=== PATIENT | female | born 1975 | race Two or more races ===

== ENCOUNTER 2018-12-15 13:16 | Emergency (ER) | payer MEDICAID ==
[~2018-12-15] VITALS: Ht 157.5 cm; Wt 77.1 kg
--- NOTE | 2018-12-15 13:10 | NUR ---
ED Nurse Note: Pt BIBA from home due to L lower abdominal pain with n/v/d since 0500 this morning. Pain 10/10. No active vomitting upon arrival. Emesis was stated to be undigested food. Per family, pt came to PCP and was diagnosed with "appendix problem" 1 month ago. AOx4, VSS moshe. Will cont to monitor.
[2018-12-15 13:24] VITALS: BP 124/76
[2018-12-15] MEDS ORDERED: Morphine Sulfate 4mg/ml Inj (IV USE ONLY) IVP ONE ×2 (13:30→15:00)
[2018-12-15] MEDS ORDERED: Ketorolac 30mg Inj IV ONE (13:30)
--- NOTE | 2018-12-15 13:36 | Emergency Room Report ---
History of Present Illness General Chief Complaint: Abdominal Pain Source: Patient (Alicia Chowdhury DO) Present Illness HPI Patient presents with complaints of left lower abdomen and left flank pain Ongoing for the past day Denies any fevers denies any dysuria Pain is 10 out of 10 causing increased nausea and vomiting Denies any diarrhea denies any chest pain or shortness of breath denies any recent travel denies any trauma Denies any change with position or exertion (Alicia Chowdhury DO) Allergies: Coded Allergies: No Known Allergies (Unverified , 12/15/18) Patient History Past Medical History: see triage record Pertinent Family History: none Now: No Reviewed Nursing Documentation: PMH: Agreed; PSxH: Agreed (Alicia Chowdhury DO) Nursing Documentation-PMH Past Medical History: No Stated History (Alicia Chowdhury DO) Review of Systems All Other Systems: negative except mentioned in HPI (Alicia Chowdhury DO) Physical Exam Vital Signs Date Time Temp Pulse Resp B/P (MAP) Pulse Ox O2 Delivery O2 Flow Rate FiO2 12/15/18 13:07 98.1 69 18 136/80 98 Room Air Sp02 EP Interpretation: reviewed, normal General Appearance: moderate distress - In acute pain Head: normocephalic, atraumatic Eyes: bilateral eye PERRL, bilateral eye EOMI ENT: hearing grossly normal, normal pharynx, TMs + canals normal, uvula midline Neck: full range of motion, supple, no meningismus, no bony tend Respiratory: lungs clear, normal breath sounds, no rhonchi, no respiratory distress, no retraction, no accessory muscle use Cardiovascular #1: normal peripheral pulses, regular rate, rhythm, no edema, no gallop, no JVD, no murmur Gastrointestinal: normal bowel sounds, non tender, soft, no mass, no organomegaly, non-distended, no guarding, no hernia, no pulsatile mass, no rebound Genitourinary: no CVA tenderness - However subjectively points to the left flank region Musculoskeletal: normal inspection Neurologic: oriented x3, responsive, 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 Medication hydration Given the level of discomfortGiven the level of discomfort CT imaging was also ordered in case CT imaging was also ordered in case signed out to my oncoming physician signed out to my PHYSICIAN (Alicia Chowdhury DO) ER Course Please see above note. Patient needed an extra dose of morphine. CT was finally read at 1750. Rocephin had been given for pyuria and in this clinical setting the diagnosis is pyelonephritis. Discussed results with the patient who understands she will be treated with close outpatient observation and if she is not doing well to return. Patient given a copy of the CT and labs for follow-up. Discussed enlarged uterus of questionable significance. Patient given a dose of Percocet prior to leaving. Patient stable for outpatient observation and treatment Laboratory Tests Test 12/15/18 13:50 12/15/18 15:05 White Blood Count 8.9 K/UL (4.8-10.8) Red Blood Count 4.50 M/UL (4.20-5.40) Hemoglobin 12.6 G/DL (12.0-16.0) Hematocrit 38.2 % (37.0-47.0) Mean Corpuscular Volume 85 FL (80-99) Mean Corpuscular Hemoglobin 27.9 PG (27.0-31.0) Mean Corpuscular Hemoglobin Concent 32.9 G/DL (32.0-36.0) Red Cell Distribution Width 13.3 % (11.6-14.8) Platelet Count 319 K/UL (150-450) Mean Platelet Volume 6.8 FL (6.5-10.1) Neutrophils (%) (Auto) 75.6 % (45.0-75.0) H Lymphocytes (%) (Auto) 15.3 % (20.0-45.0) L Monocytes (%) (Auto) 6.6 % (1.0-10.0) Eosinophils (%) (Auto) 1.6 % (0.0-3.0) Basophils (%) (Auto) 0.8 % (0.0-2.0) Urine Color Pale yellow Urine Appearance Cloudy Urine pH 6 (4.5-8.0) Urine Specific [place] 1.020 (1.005-1.035) Urine Protein 1+ (NEGATIVE) H Urine Glucose (UA) Negative (NEGATIVE) Urine Ketones Negative (NEGATIVE) Urine Blood 2+ (NEGATIVE) H Urine Nitrite Negative (NEGATIVE) Urine Bilirubin Negative (NEGATIVE) Urine Urobilinogen Normal MG/DL (0.0-1.0) Urine Leukocyte Esterase 3+ (NEGATIVE) H Urine RBC 2-4 /HPF (0 - 2) H Urine WBC Tntc /HPF (0 - 2) H Urine Squamous Epithelial Cells Occasional /LPF Urine Bacteria Moderate /HPF (NONE) H Urine HCG, Qualitative Negative (NEGATIVE) Sodium Level 140 MMOL/L (136-145) Potassium Level 3.7 MMOL/L (3.5-5.1) Chloride Level 104 MMOL/L (98-107) Carbon Dioxide Level 26 MMOL/L (21-32) Anion Gap 10 mmol/L (5-15) Blood Urea Nitrogen 8 mg/dL (7-18) Creatinine 0.8 MG/DL (0.55-1.30) Estimate Glomerular Filtration Rate > 60 mL/min (>60) Glucose Level 124 MG/DL (74-106) H Lactic Acid Level 2.00 mmol/L (0.4-2.0) 1.90 mmol/L (0.66-2.22) Calcium Level 8.9 MG/DL (8.5-10.1) Total Bilirubin 0.2 MG/DL (0.2-1.0) Aspartate Amino Transferase (AST) 23 U/L (15-37) Alanine Aminotransferase (ALT) 44 U/L (12-78) Alkaline Phosphatase 67 U/L (46-116) Creatine Kinase MB 1.7 NG/ML (0.0-3.6) Total Protein 7.8 G/DL (6.4-8.2) Albumin 3.6 G/DL (3.4-5.0) Globulin 4.2 g/dL Albumin/Globulin Ratio 0.9 (1.0-2.7) L Lipase 184 U/L (73-393) (Eddie Davis MD) CT/MRI/US Diagnostic Results CT/MRI/US Diagnostic Results : Imaging Test Ordered: Abdomen and pelvis Impression Enlarged uterus. Correlate for state. 2.4 cm left ovarian cyst. No GI or urinary tract obstruction. (Eddie Davis MD) Last Vital Signs Date Time Temp Pulse Resp B/P (MAP) Pulse Ox O2 Delivery O2 Flow Rate FiO2 12/15/18 13:24 98.1 71 18 124/76 99 Room Air (Alicia Chowdhury DO) Last Vital Signs Date Time Temp Pulse Resp B/P (MAP) Pulse Ox O2 Delivery O2 Flow Rate FiO2 12/15/18 18:24 98.5 69 20 119/62 99 Room Air Status: improved (Eddie Davis MD) Disposition: HOME, SELF-CARE Condition: Improved Signed Out To: Dr mcclelland 14:00 (Alicia Chowdhury DO) Scripts Ibuprofen* (MOTRIN*) 600 Mg Tablet 600 MG ORAL Q6H PRN for For Pain, #20 TAB Prov: Eddie Davis MD 12/15/18 Ondansetron Odt* (ZOFRAN ODT*) 4 Mg Tab.rapdis 4 MG BC EVERY 8 HOURS, #10 TAB 0 Refills Prov: Eddie Davis MD 12/15/18 Oxycodone/Acetaminophen 5-325* (PERCOCET 5-325 MG TABLET*) 1 Each Tablet 1 TAB ORAL Q6H PRN for For Pain, #10 TAB 0 Refills Prov: Eddie Davis MD 12/15/18 Ciprofloxacin* (CIPRO*) 500 Mg Tablet 500 MG PO BID, #20 TAB Prov: Eddie Davis MD 12/15/18 Alicia Chowdhury DO Dec 15, 2018 13:36 Eddie Davis MD Dec 15, 2018 17:58
[2018-12-15 14:05] VITALS: BP 107/64
[2018-12-15 14:18] LABS: BASOPHILS % (AUTO) 0.8 % (0.0-2.0); EOSINOPHILS % (AUTO) 1.6 % (0.0-3.0); HEMATOCRIT 38.2 % (37.0-47.0); HEMOGLOBIN 12.6 G/DL (12.0-16.0); LYMPHOCYTES % (AUTO) 15.3 % (20.0-45.0); MEAN CORPUSCULAR VOLUME 85 FL (80-99); MONOCYTES % (AUTO) 6.6 % (1.0-10.0); NEUTROPHILS % (AUTO) 75.6 % (45.0-75.0); PLATELET COUNT 319 K/UL (150-450); RED CELL DISTRIBUTION WIDTH 13.3 % (11.6-14.8); WHITE BLOOD COUNT 8.9 K/UL (4.8-10.8)
[2018-12-15 14:24] LABS: ANION GAP 10 mmol/L (5-15); APPEARANCE,URINE CLOUDY; BILIRUBIN, URINE NEGATIVE (NEGATIVE); BLOOD UREA NITROGEN 8 mg/dL (7-18); CALCIUM 8.9 MG/DL (8.5-10.1); CARBON DIOXIDE 26 MMOL/L (21-32); CHLORIDE 104 MMOL/L (98-107); COLOR,URINE PALE YELLOW; CREATININE 0.8 MG/DL (0.55-1.30); GLUCOSE, URINE (UA) NEGATIVE (NEGATIVE); KETONES,URINE NEGATIVE (NEGATIVE); LEUKOCYTE ESTERASE ,URINE 3+ (NEGATIVE); NITRITE,URINE NEGATIVE (NEGATIVE); PH,URINE 6 (4.5-8.0); POTASSIUM 3.7 MMOL/L (3.5-5.1); PROTEIN,URINE 1+ (NEGATIVE); SODIUM 140 MMOL/L (136-145); UROBILINOGEN,URINE NORMAL MG/DL (0.0-1.0)
[2018-12-15 14:37] LABS: ALANINE AMINOTRANSFERASE 44 U/L (12-78); ALBUMIN 3.6 G/DL (3.4-5.0); ALBUMIN/GLOBULIN RATIO 0.9 (1.0-2.7); ALKALINE PHOSPHATASE 67 U/L (46-116); ASPARTATE AMINO TRANSFERASE 23 U/L (15-37); BILIRUBIN,TOTAL 0.2 MG/DL (0.2-1.0); CKMB 1.7 NG/ML (0.0-3.6)
--- NOTE | 2018-12-15 14:42 | NUR ---
ED Nurse Note: Patient resting in bed without facial grimacing or guarding. Patient reports that pain is tolerable at this time without futher meds. Son at bedside. Bed in lowest position. Report given to ANJU Caal.
--- NOTE | 2018-12-15 15:10 | NUR ---
ED Nurse Note: Lactic Reflex sent to lab.
--- NOTE | 2018-12-15 15:20 | NUR ---
ED Nurse Note: Pt down to Ct for imaging.
[2018-12-15 16:34] VITALS: BP 112/57
[2018-12-15] MEDS ORDERED: cefTRIAXone 1 GM in NS 55 ML IVPB ONE (17:15)
--- NOTE | 2018-12-15 17:45 | Diagnostic Imaging Report ---
EXAM: CT Abdomen and Pelvis Without Intravenous Contrast CLINICAL HISTORY: PAIN TECHNIQUE: Axial computed tomography images of the abdomen and pelvis without intravenous contrast. CTDI is 14.79 mGy and DLP is 789 mGy-cm. One or more of the following dose reduction techniques were used: automated exposure control, adjustment of the mA and/or kV according to patient size, use of iterative reconstruction technique. COMPARISON: No relevant prior studies available. FINDINGS: Lung bases are clear except for minimal atelectasis. The liver, biliary tree, pancreas, spleen, kidneys, and adrenal glands are within normal limits for noncontrast technique. No bowel obstruction or perforation. Status post appendectomy. Mildly enlarged uterus. Correlate for state. 2.4 cm left ovarian cyst. No abdominal aortic aneurysm. Trace free pelvic fluid may be physiologic. No fracture. IMPRESSION: Enlarged uterus. Correlate for state. 2.4 cm left ovarian cyst. No GI or urinary tract obstruction.
[2018-12-15] MEDS ORDERED: IBUPROFEN600 MG ORAL (18:04)
[2018-12-15] MEDS ORDERED: CIPRO500 MG PO (18:04)
[2018-12-15] MEDS ORDERED: PERCOCET 5-3251 EACH ORAL (18:04)
[2018-12-15] MEDS ORDERED: ONDANSETRON ODT4 MG BC (18:04)
[2018-12-15 18:17] VITALS: BP 119/62
[2018-12-15 18:24] VITALS: BP 119/62
--- NOTE | 2018-12-15 18:24 | NUR ---
ED Nurse Note: Pt is clear to be discharged by ERMD. DIscharge paper and prescription given, pt verbalized understanding of discharge instruction. AOx4, VSS. Wristband and IV removed. Pt ambulated out with steady gait with all belongings.
[2018-12-15] MEDS ORDERED: oxyCODONE HCL/Acetaminophen 5/325mg ORAL ONE (18:30)
== END 2018-12-15 18:24 | disposition home or self-care (01) ==
LOC: EDBD 13:16 → EMR 13:49
DX: N11.1 Chronic obstructive pyelonephritis (principal)
CPT/HCPCS: 36415; 74176; 80053; 81003; 81025; 82553; 83605; 83690; 85025; 87086; 87181; 96361; 96365; 96375; 96376; 99284; J0696; J1885; J2270; J2405